=== PATIENT | female | born 1975 | race Caucasian/White ===

== ENCOUNTER 2019-01-28 18:45 | Emergency (ER) | payer OTHER ==
[~2019-01-28] VITALS: Ht 172.7 cm; Wt 104.3 kg
[2019-01-28] MEDS ORDERED: IBUPROFEN 600600 M1 PO (18:53)
[2019-01-28 20:18] LABS: ABSOLUTE BASOPHILS 0.1 thou/uL (0.0-0.2); ABSOLUTE EOSINOPHILS 0.2 thou/uL (0.0-0.7); ABSOLUTE LYMPHOCYTES 2.2 thou/uL (0.8-5.3); ABSOLUTE MONOCYTES 0.8 thou/uL (0.0-1.2); ABSOLUTE NEUTROPHILS 12.3 thou/uL (1.6-8.1); BASOPHILS 0.8 %; HEMATOCRIT 48.7 % (37.0-47.0); HEMOGLOBIN 16.5 gm/dL (12.0-15.0); LYMPHOCYTES 14.4 %; MCH 31.2 pg (26.0-34.0); MCHC 33.8 g/dL (28.0-37.0); MCV 92.3 fL (80.0-100.0); MONOCYTES 5.4 %; MPV 7.5 fl. (7.2-11.1); NUCLEATED RBCS 0 /100WBC; PLATELET COUNT* 435 thou/uL (150-400); POLYS 78.4 %; RBC 5.27 mil/uL (4.20-5.00); RDW-CV 13.2 % (10.5-14.5); WBC 15.6 thou/uL (4.0-11.0)
[2019-01-28 20:21] LABS: URINE BLOOD NEGATIVE (Negative); URINE CLARITY CLEAR; URINE COLOR YELLOW; URINE GLUCOSE-RANDOM NEGATIVE (Negative); URINE KETONES 1+ (Negative); URINE LEUKOCYTES-REFLEX TRACE (Negative); URINE NITRITE-REFLEX NEGATIVE (Negative); URINE PROTEIN NEGATIVE (Negative); URINE SPECIFIC GRAVITY 1.025 (1.005-1.030)
[2019-01-28 20:23] LABS: URINE BILIRUBIN 1+ (Negative)
[2019-01-28 20:24] LABS: ICTOTEST (BILI CONFIRMATORY) Negative (Negative)
[2019-01-28 20:27] LABS: MUCUS None Seen strn/LPF (None Seen); SQUAMOUS >10 Many /LPF (0-3)
[2019-01-28 20:28] LABS: APTT 21.3 Seconds (25.0-31.3); INR 0.9; PROTIME 9.4 Seconds (9.20-11.50)
[2019-01-28 20:28] LABS: HYALINE CASTS 0-3 Few /LPF (None Seen); URINE WBC-REFLEX 0-5 Rare /HPF (0-5)
[2019-01-28 20:29] LABS: BACTERIA-REFLEX >30 Many /HPF (None Seen); CRYSTALS None Seen /LPF (None Seen); URINE RBC None Seen /HPF (0-2)
[2019-01-28 20:37] LABS: ANION GAP 9 mmol/L (7-16); BUN 14 mg/dL (7-18); CALCIUM 8.8 mg/dL (8.5-10.1); CHLORIDE 105 mmol/L (98-107); CO2 26 mmol/L (21-32); CREATININE 0.9 mg/dL (0.6-1.3); GLUCOSE 109 mg/dL (70-99); POTASSIUM 3.1 mmol/L (3.5-5.1); SODIUM 140 mmol/L (136-145)
[2019-01-28 20:50] LABS: ALBUMIN 3.7 g/dL (3.4-5.0); ALKALINE PHOSPHATASE 47 U/L (46-116); LIPASE 93 U/L (73-393); SGOT 27 U/L (15-37); SGPT 58 U/L (30-65); TOTAL BILIRUBIN 0.4 mg/dL (<0.1-1.0); TOTAL PROTEIN 6.7 g/dL (6.4-8.2); TROPONIN-I LEVEL <0.06 ng/mL (<0.06)
[2019-01-28] MEDS ORDERED: ZOFRAN4 MG PO (21:57)
[2019-01-28] MEDS ORDERED: BENTYL 20 MG TA20 M1 PO (21:57)
[2019-01-28] MEDS ORDERED: ZPAK PO (21:59)
[2019-01-28] MEDS ORDERED: VENTOLIN HFA 1818 GM INH (22:22)
[2019-01-28] MEDS ORDERED: MEDROLDOSEPACK PO (22:22)
[2019-01-28 22:25] VITALS: BP 95/50
--- NOTE | 2019-01-29 16:26 | EKG ---
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
== END 2019-01-28 22:27 | disposition home or self-care (01) ==
LOC: M.ERS 18:45
PROVIDERS: Nurse Practitioner Family
DX: K80.50 Calculus of bile duct without cholangitis or cholecystitis without obstruction (principal); J18.9 Pneumonia, unspecified organism; F17.210 Nicotine dependence, cigarettes, uncomplicated

== ENCOUNTER 2019-03-18 07:49 | Inpatient (IN) | payer OTHER ==
[~2019-03-18] VITALS: Ht 172.7 cm; Wt 99.3 kg
[~2019-03-18 07:49] MED LIST: BENTYL 20 MG TA20 M1 PO; IBUPROFEN 600600 M1 PO; MEDROLDOSEPACK PO; VENTOLIN HFA 1818 GM INH; ZOFRAN4 MG PO; ZPAK PO
[2019-03-18 07:52] VITALS: BP 108/61
[2019-03-18 08:13] LABS: URINE BILIRUBIN NEGATIVE (Negative); URINE BLOOD TRACE (Negative); URINE CLARITY CLEAR; URINE COLOR YELLOW; URINE GLUCOSE-RANDOM NEGATIVE (Negative); URINE KETONES NEGATIVE (Negative); URINE LEUKOCYTES-REFLEX TRACE (Negative); URINE NITRITE-REFLEX NEGATIVE (Negative); URINE PROTEIN NEGATIVE (Negative); URINE UROBILINOGEN 0.2 E.U./dl (0.2-1.0)
[2019-03-18 08:27] LABS: BACTERIA-REFLEX 1-9 Few /HPF (None Seen); CASTS None Seen /LPF (None Seen); CRYSTALS None Seen /LPF (None Seen); MUCUS 0-3 Light strn/LPF (None Seen); SQUAMOUS >10 Many /LPF (0-3); URINE RBC 0-2 Rare /HPF (0-2); URINE WBC-REFLEX 6-15 Few /HPF (0-5)
[2019-03-18 08:38] LABS: ABSOLUTE BASOPHILS 0.1 thou/uL (0.0-0.2); ABSOLUTE EOSINOPHILS 0.2 thou/uL (0.0-0.7); ABSOLUTE LYMPHOCYTES 2.6 thou/uL (0.8-5.3); ABSOLUTE MONOCYTES 1.1 thou/uL (0.0-1.2); ABSOLUTE NEUTROPHILS 10.8 thou/uL (1.6-8.1); BASOPHILS 0.7 %; EOSINOPHILS 1.6 %; HEMATOCRIT 44.1 % (37.0-47.0); HEMOGLOBIN 14.8 gm/dL (12.0-15.0); LYMPHOCYTES 17.3 %; MCH 31.1 pg (26.0-34.0); MCHC 33.5 g/dL (28.0-37.0); MONOCYTES 7.3 %; MPV 7.6 fl. (7.2-11.1); NUCLEATED RBCS 0 /100WBC; PLATELET COUNT* 328 thou/uL (150-400); POLYS 73.1 %; RBC 4.74 mil/uL (4.20-5.00); RDW-CV 13.2 % (10.5-14.5); WBC 14.8 thou/uL (4.0-11.0)
[2019-03-18 08:43] LABS: CREATININE 0.7 mg/dL (0.6-1.3); POTASSIUM 3.6 mmol/L (3.5-5.1)
[2019-03-18 08:47] LABS: ALBUMIN 2.7 g/dL (3.4-5.0); TOTAL BILIRUBIN 0.7 mg/dL (<0.1-1.0); TOTAL PROTEIN 5.7 g/dL (6.4-8.2)
[2019-03-18 12:13] VITALS: BP 98/65
[2019-03-18 12:29] VITALS: BP 96/60
--- NOTE | 2019-03-18 12:51 | NUR ---
PT ADMITTED TO UNIT WITH DIVERTICULITIS. PT ALERT AND ORIENTED. PT RESTING IN ROOM. PT ON ROOM AOIR. LUNGS CLEAR. PULSES 2+. PT TOLERATING CLEAR LIQUID DIET. PT UP AD WAYNE. PAIN MEDS GIVEN ORDERED. BP 96/60. FALL RISK PRECAUTIONS IN PLACE. WILL CONTINUE TO MONITOR.
[2019-03-18 16:00] VITALS: BP 102/66
--- NOTE | 2019-03-18 17:46 | NUR ---
PT REMAINED ALERT AND ORIENTED. PT C/O PAIN, MEDS GIVEN ORDERED. FALL RISK PRECAUTIONS IN PLACE. HOURLY ROUNDING COMPLETED. WILL CONTINUE TO MONITOR.
[2019-03-18 20:00] VITALS: BP 93/48
[2019-03-19 00:10] VITALS: BP 88/53
[2019-03-19 00:41] VITALS: BP 92/55
[2019-03-19 03:59] VITALS: BP 97/52
[2019-03-19 04:05] LABS: HEMATOCRIT 37.8 % (37.0-47.0); MCHC 33.1 g/dL (28.0-37.0); MCV 93.6 fL (80.0-100.0); MPV 7.8 fl. (7.2-11.1); RBC 4.04 mil/uL (4.20-5.00); RDW-CV 13.1 % (10.5-14.5); WBC 10.8 thou/uL (4.0-11.0)
[2019-03-19 04:06] LABS: HEMOGLOBIN 12.5 gm/dL (12.0-15.0)
[2019-03-19 04:13] LABS: CALCIUM 7.4 mg/dL (8.5-10.1); CREATININE 0.6 mg/dL (0.6-1.3); MAGNESIUM 1.6 mg/dL (1.8-2.4); POTASSIUM 3.7 mmol/L (3.5-5.1)
--- NOTE | 2019-03-19 05:17 | NUR ---
PT STATES SHE SLEPT FAIRLY WELL OFF AND ON OVERNIGHT. UP AD WAYNE TO BR TO VOID WITHOUT DIFFICULTY. TAKING CLEAR LIQUIDS WITHOUT N/V. TYLENOL GIVEN FOR HEADACHE AT START OF SHIFT WITH GOOD RESULT, HAS DENIED NEED FOR PAIN MED OVERNIGHT. MELATONIN GIVEN FOR SLEEP PER PT REQUEST. L JUGULAR IVF INFUSING PER PUMP, ABX GIVEN ORDERED. BP SOFT BUT STABLE OVERNIGHT. AOX4, PLEASANT. TEMP MAX 99.4 THIS SHIFT. AM LABS DRAWN. MAG 1.6, ONE DOSE PO GIVEN THIS MORNING. ABLE TO USE CALL LITE AND MAKE NEEDS KNOWN. CALL LITE IN EASY REACH.
[2019-03-19 07:45] VITALS: BP 95/54
--- NOTE | 2019-03-19 13:21 | NUR ---
SW met with pt to complete initial assessment, introduce self and SW role. Pt alert, oriented. Pt lives at home with significant other and child. Pt said she did receive phone call from [employer] but wasn't sure if it was truly associated with [facility] so was skeptical, SW explained that pt can trust [employer] and that [employer] can assist pt with determining if pt will qualify for Medicaid and provide application assistance if needed. SW to continue to follow to assist with safe dc planning.
[2019-03-19 16:00] VITALS: BP 108/66
--- NOTE | 2019-03-19 18:35 | NUR ---
PATIENT PLEASANT AND COOPERATIVE THRU SHIFT. DENIES PAIN. STATES CHANGING IV OUT OF JUGULAR HELPED W/ NECK PAIN FROM KEEPING NECK TURNED TO RT SIDE. IV CATH SITE IN LT FA. FLUSHES EASILY. IV SL AT THIS TIME. PATIENT INDEP IN RM. STATES HAVING BM TODAY. VOIDING W/O DIFF. DIET ADVANCED TO SOFT/FIBER RESTRICTED FOR SUPPER THIS SHIFT. HRLY ROUNDS DONE. NO CURRENT NEEDS. ~LUBNARN
[2019-03-19 20:28] VITALS: BP 118/72
[2019-03-20 03:56] LABS: HEMATOCRIT 36.9 % (37.0-47.0); HEMOGLOBIN 12.5 gm/dL (12.0-15.0); MCH 31.3 pg (26.0-34.0); MCHC 33.8 g/dL (28.0-37.0); MCV 92.6 fL (80.0-100.0); MPV 7.5 fl. (7.2-11.1); RBC 3.99 mil/uL (4.20-5.00); RDW-CV 13.1 % (10.5-14.5); WBC 9.6 thou/uL (4.0-11.0)
[2019-03-20 04:29] LABS: ALBUMIN 2.3 g/dL (3.4-5.0); CALCIUM 8.2 mg/dL (8.5-10.1); CREATININE 0.6 mg/dL (0.6-1.3); MAGNESIUM 1.7 mg/dL (1.8-2.4); POTASSIUM 3.8 mmol/L (3.5-5.1); TOTAL BILIRUBIN 0.4 mg/dL (<0.1-1.0); TOTAL PROTEIN 5.4 g/dL (6.4-8.2)
--- NOTE | 2019-03-20 05:23 | NUR ---
PATIENT HAS REMAINED ALERT AND ORIENTED X 4 THROUGHOUT THE SHIFT AND RESTING QUIETLY ON HOURLY ROUNDS AFTER MELATONIN AND BENADRYL AT HS. HAS DENIED SIGNIFICANT PAIN AND HAS NOT REQUIRED PAIN MEDICATION. STATES SOME SORENESS OF LOWER ABDOMINAL MUSCLES. DENIES NAUSEA. NO VOMITING. UP INDEPENDENTLY IN THE ROOM. TOLERATING DIET. VITAL SIGNS STABLE. MEDS/ANTIBIOTICS PER ORDER. MAGNESIUM REPLACEMENT IN PROGRESS. CONTINUE TO MONITOR.
[2019-03-20] MEDS ORDERED: LEVAQUIN 500 M500 M2 PO (07:51)
[2019-03-20] MEDS ORDERED: FLAGYL500 M1 PO (07:51)
[2019-03-20] MEDS ORDERED: HYDROCODON-ACE1 EAC7 PO (07:51)
[2019-03-20] MEDS ORDERED: MIRALAX17 GM PO (07:51)
[2019-03-20] MEDS ORDERED: ACIDOPHILUS1 EAC4 PO (07:51)
[2019-03-20 09:47] VITALS: BP 110/67
[2019-03-20 10:10] VITALS: BP 110/67
--- NOTE | 2019-03-20 10:45 | NUR ---
PT DISCHARGED TO HOME WITH NURSING STAFF AND SIGNIFICANT OTHER AT 1043. IV OUT. PT STABLE UPON DISCHARGE. PAPER SCRIPTS AND CARE NOTES GIVEN. PERSONAL BELONGINGS SENT WITH PT.
--- NOTE | 2019-03-20 12:56 | NUR ---
Nutrition: Pt discharged home before I was able to educate her on low fiber diet for diverticulitis. Called pt on her cell phone. She was very interested in more diet information. We discussed low fiber diet on phone, and some fiber sources. Pt gave me her email to send further info and handouts. Pt very grateful for the call and the info. Food and nutrition-related knowledge deficit R/T fiber AEB consult received. RD expects good compliance.
--- NOTE | 2019-03-21 16:06 | CON ---
[address] [address] CONSULTATION Name: FATEMEH KEENE Room: [address] [place] .R.#: [id number] Admission: 03/18/19 Attend Phys: Orly Keller MD Discharge: 03/20/19 Date of : 73 Report #: [id number] THIS REPORT FOR: //name// CC: [facility] physician/PCP Orly Keller DICTATED BY: Sandra Lorenzo [facility] DATE OF SERVICE: 03/19/2019 The patient does not currently have a PCP. Please note at the time of this dictation, the patient was seen and physically examined by myself. REASON FOR CONSULTATION: Diverticulitis. HISTORY OF PRESENT ILLNESS: This is a pleasant 43-year-old female who presented to the Emergency Room yesterday after having worsening of her left lower quadrant pain that became extremely more painful. She states that similar to 2 previous bouts of diverticulitis that she has had with her first episode being 5 years ago, she had a week long hospitalization at [facility] and then, most recently last fall. She was seen at [facility] in [place] through the Emergency Room, in which a CAT scan was done and was told she had diverticulitis and she was sent home on antibiotics. She has never seen a GI specialist regarding this in the past; so, therefore, she has never had a colonoscopy. She is willing to seek this out after being dismissed from the hospital to get this taken care of; however, she is working on getting insurance at this particular time. The patient states she usually does not have any issues with constipation; however, she has not gone since Saturday. Otherwise, she normally goes on a daily basis. ALLERGIES: No known drug allergies. MEDICATIONS: From home include dicyclomine, albuterol inhaler and some ibuprofen. PAST MEDICAL HISTORY: History of diverticulitis, third bout. PAST SURGICAL HISTORY: Tonsillectomy. FAMILY HISTORY: Grandmother, ovarian cancer. SOCIAL HISTORY: Denies any alcohol or illegal drug use, but she smoking currently about a half a pack per day for the last [address] [place] [address] CONSULTATION Name: YECENIAFATEMEH Marielena Room: [address]#: [id number] Admission: 03/18/19 Attend Phys: Orly Keller MD Discharge: 03/20/19 Date of : 73 Report #: [id number] REVIEW OF SYSTEMS: Twelve-point review of systems is essentially negative except what is mentioned in the HPI. PHYSICAL EXAMINATION: VITAL SIGNS: Temperature 36.9, pulse 73, respirations 20, blood pressure 95/54. HEART: Regular rate and rhythm. LUNGS: Clear. ABDOMEN: Soft, positive bowel sounds in all 4 quadrants with some left mid to left lower quadrant tenderness noted to palpation. LABORATORY DATA: Hemoglobin is 12.5 on admission; white count was elevated at 14, she is down to 10.8; platelets 316. GFR is 104. CT on admission showed distal descending diverticulitis with some also cholelithiasis noted and a large fat ventral hernia noted. IMPRESSION: 1. Abdominal pain. 2. Diverticulitis. 3. Leukocytosis, resolved. 4. Family history of ovarian cancer. PLAN: 1. We will continue her antibiotics, Levaquin and Flagyl. 2. The patient will need an outpatient colonoscopy for aching in about 6 weeks. 3. Surgical consultation has already been placed. 4. We will need an office visit in about 4 weeks and we will discuss getting scheduled for colonoscopy at that time. Thank you for allowing us to participate in this patient's care. Please do not hesitate to call with any questions in regard to this consult. <ELECTRONICALLY SIGNED> By: Gt aBires DO 03/21/19 1606 [id number] Baires DO /nt
== END 2019-03-20 10:43 | disposition home or self-care (01) | DRG 392 ==
LOC: M.ERS 07:49 → M.TBA-ER 11:04 → M.ORTHSURG 11:04
PROVIDERS: Emergency Medicine Emergency Medical Services; Internal Medicine; ADMIT Internal Medicine
DX: K57.32 Diverticulitis of large intestine without perforation or abscess without bleeding (principal); D72.829 Elevated white blood cell count, unspecified; E66.9 Obesity, unspecified; K80.20 Calculus of gallbladder without cholecystitis without obstruction; K46.9 Unspecified abdominal hernia without obstruction or gangrene; D27.9 Benign neoplasm of unspecified ovary; K42.9 Umbilical hernia without obstruction or gangrene; K43.9 Ventral hernia without obstruction or gangrene; F17.210 Nicotine dependence, cigarettes, uncomplicated; Z68.33 Body mass index [BMI] 33.0-33.9, adult; Z80.41 Family history of malignant neoplasm of ovary; Z79.899 Other long term (current) drug therapy

== ENCOUNTER 2019-07-14 07:22 | Emergency (ER) | payer OTHER ==
[~2019-07-14] VITALS: Ht 175.3 cm; Wt 82.6 kg
[~2019-07-14 07:22] MED LIST changes: +ACIDOPHILUS1 EAC4 PO; +FLAGYL500 M1 PO; +HYDROCODON-ACE1 EAC7 PO; +LEVAQUIN 500 M500 M2 PO; +MIRALAX17 GM PO
[2019-07-14 12:50] VITALS: BP 141/82
== END 2019-07-14 12:53 | disposition home or self-care (01) ==
LOC: M.ERS 07:22
DX: R51 Headache (principal); F17.200 Nicotine dependence, unspecified, uncomplicated; Z90.49 Acquired absence of other specified parts of digestive tract; Z98.890 Other specified postprocedural states